=== PATIENT | female | born 1975 | race American Indian/Alaskan Native ===

== ENCOUNTER 2016-12-30 08:55 | Emergency (ER) | payer OTHER ==
[2016-12-30 09:12] VITALS: BP 113/61
[2016-12-30] MEDS ORDERED: NORCO 5/325 PO ONE (09:52)
[2016-12-30] MEDS ORDERED: TORADOL IM ONE (09:52)
--- NOTE | 2016-12-30 10:44 | Emergency Department Report ---
HPI - General Chief Complaint: Extremity Injury, Lower Time Seen by Provider: 12/30/16 09:51 - HPI HPI: 41-year-old female presents today with bruising and swelling to the medial aspect of the left ankle times one year. Patient states that his symptoms worsen 2 days ago. Denies any injury or trauma but states that her work involves standing at all times. Tried Advil without relief. Describes a pain scale 10 constant aching pain that is worse with weightbearing. Denies numbness , weakness, paresthesias. Denies fever, chills, nausea, vomiting, chest pain, shortness of breath, abdominal pain. ED Past Medical Hx - Past Medical History Previous Medical History?: No Hx Asthma: Yes - Surgical History Past Surgical History?: Yes Additional Surgical History: x 2 - Social History Smoking Status: Never Smoker Substance Use Type: Alcohol, Non Opiate Pain - Medications Home Medications: Home Medications Medication Instructions Recorded Confirmed Last Taken Type traMADol [Ultram 50 MG tab] 50 mg PO Q6HR PRN #20 tablet 12/30/16 Unknown Rx ED Review of Systems ROS: Stated complaint: LT ANKLE PAIN Other details as noted in HPI Constitutional: denies: chills, fever, malaise Eyes: denies: eye pain ENT: denies: ear pain, throat pain, congestion Respiratory: denies: cough, shortness of breath, wheezing Cardiovascular: denies: chest pain, palpitations Endocrine: no symptoms reported Gastrointestinal: denies: abdominal pain, nausea, vomiting Musculoskeletal: arthralgia Neurological: denies: headache, weakness, numbness, paresthesias Physical Exam - Physical Exam Vital Signs: Vital Signs 12/30/16 09:08 Temperature 98.2 F Pulse Rate 79 Respiratory 20 Rate Blood Pressure 113/61 O2 Sat by Pulse 100 Oximetry Physical Exam: GENERAL: The patient is well-developed and well-nourished. Patient is in NAD. HEAD: Normocephalic. Atraumatic. CHEST/LUNGS: Clear to auscultation throughout. HEART/CARDIOVASCULAR: Regular rate and rhythm. No murmurs, rubs or gallops. ABDOMEN: Abdomen is soft, nontender. Bowel sounds normoactive. No guarding or rebound tenderness. LEFT ANKLE: Full range of motion but painful. Positive for ecchymosis, edema and tenderness to palpation noted over the medial aspect of left ankle. Peripheral pulses intact. Capillary refill less than 2 seconds. NEURO: Alert and oriented x 3. ED Course Vital Signs 12/30/16 09:08 Temperature 98.2 F Pulse Rate 79 Respiratory 20 Rate Blood Pressure 113/61 O2 Sat by Pulse 100 Oximetry ED Medical Decision Making - Lab Data Vital Signs 12/30/16 09:08 Temperature 98.2 F Pulse Rate 79 Respiratory 20 Rate Blood Pressure 113/61 O2 Sat by Pulse 100 Oximetry - Medical Decision Making 41-year-old female presents today with left ankle pain times one year that worsened 2 days ago. Her x-ray results revealed no fracture or dislocation, diffuse swelling is noted. Her ankle has been put in an Selvin wrap. RICE therapy has been recommended. A referral for orthopedic has been provided. Patient is in no acute distress at this time. She will be discharged home and is encouraged to follow up with a primary care provider. She will be sent home on tramadol and is encouraged to return to the emergency room for any worsening symptoms. Critical care attestation.: If time is entered above; I have spent that time in minutes in the direct care of this critically ill patient, excluding procedure time. ED Disposition Clinical Impression: Ankle pain Qualifiers: Laterality: left Chronicity: chronic Qualified Code(s): M25.572 - Pain in left ankle and joints of left foot; G89.29 - Other chronic pain Disposition: DISCHARGED TO HOME OR SELFCARE Is pt being admited?: No Does the pt Need Aspirin: No Condition: Stable Instructions: Arthralgia (ED), Ankle Sprain (ED), Ankle Exercises (GEN) Additional Instructions: Follow-up with primary care provider. Return to the emergency department if symptoms worsen. Prescriptions: traMADol [Ultram 50 MG tab] 50 mg PO Q6HR PRN #20 tablet PRN Reason: Pain Referrals: PRIMARY MD BIMAL [Primary Care Provider] - 3-5 Days TIMOTHY PHILLIPS MD [Staff Physician] - 3-5 Days [facility] [Outside] - 3-5 Days Forms: Work/School Release Form(ED) Time of Disposition: 10:57
--- NOTE | 2016-12-30 10:47 | XRay Report ---
LEFT ANKLE, 3 views: History: Pain and swelling. Bone mineralization is normal. No acute osseous abnormality or joint pathology is identified. There is mild diffuse soft tissue swelling. IMPRESSION: Soft tissue swelling.
== END 2016-12-30 11:07 | disposition home or self-care (01) ==
LOC: ED 08:55
DX: M25.572 Pain in left ankle and joints of left foot (principal); G89.29 Other chronic pain; J45.909 Unspecified asthma, uncomplicated
CPT/HCPCS: 73610; 96372; 99283; J1885

== ENCOUNTER 2017-01-29 17:48 | Outpatient (CLI) | payer OTHER ==
--- NOTE | 2017-02-02 08:26 | Magnetic Resonance Report ---
MR LOWER EXTREMITY JOINT LEFT WITHOUT CONTRAST HISTORY: Foot and ankle pain. The posterior tibial tendinitis. TECHNIQUE: Multisequence, multiplanar MRI without contrast was performed through the distal left leg and most of the left foot. Fat suppression technique was utilized. COMPARISON: Left ankle films dated 12/30/16. FINDINGS: There is mild thickening and increased intrinsic signal of the distal, horizontal portion of the posterior tibial tendon. This is most pronounced at the insertion site of the tendon on the medial surface of the navicular bone. There is certainly a moderate tendinopathy. I suspect a longitudinal tear is present. No complete rupture. There is trace fluid in the tendon sheath. The flexor digitorum longus, the flexor hallucis longus, peroneal tendons, anterior tibial tendon and Achilles tendon are normal size and signal. No additional tendinopathy is detected. There is subtle subchondral bone marrow edema in the posterior aspect of the medial malleolus adjacent to the posterior tibial tendon. Otherwise, the bone marrow signal throughout the visualized distal left lower extremities within normal limits. No fracture, bone lesion or erosive joint pathology. No accessory navicular bone. A small joint effusion is identified at the tibiotalar joint. No significant joint pathology is appreciated. IMPRESSION: Findings consistent with a moderate to severe tendinopathy and probable longitudinal tear in the distal posterior tibial tendon as described above.
== END 2017-01-29 17:49 | disposition home or self-care (01) ==
LOC: MRI 17:48
PROVIDERS: ATTEND Orthopaedic Surgery
DX: M76.822 Posterior tibial tendinitis, left leg (principal)
CPT/HCPCS: 73721

== ENCOUNTER 2019-02-04 12:08 | Emergency (ER) | payer OTHER ==
[2019-02-04 12:44] VITALS: BP 126/79
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
[2019-02-04] MEDS ORDERED: TYLENOL #3 PO ONE (16:56)
[2019-02-04] MEDS ORDERED: ZOFRAN ODT PO ONE (16:56)
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
== END 2019-02-04 17:35 | disposition home or self-care (01) ==
LOC: ED 12:08
DX: M25.511 Pain in right shoulder (principal); M19.90 Unspecified osteoarthritis, unspecified site; J45.909 Unspecified asthma, uncomplicated; Z91.018 Allergy to other foods; V89.2XXA Person injured in unspecified motor-vehicle accident, traffic, initial encounter; Y93.89 Activity, other specified; Y92.488 Other paved roadways as the place of occurrence of the external cause; Y99.8 Other external cause status
CPT/HCPCS: 99283; Q0162